=== PATIENT | male | born 1935 | race Caucasian/White ===

== ENCOUNTER 2017-10-03 05:30 | Day surgery (SDC) | payer MEDICARE, BC ==
[2017-10-03] MEDS ORDERED: LACTATED RINGERS 1,000 ML IV ONE (06:00)
[2017-10-03] MEDS ORDERED: SCOPOLAMINE 1.5MG PATCH TD SCH (06:00)
[2017-10-03] MEDS ORDERED: TRANEXAMIC ACID 100 MG/ML SOL ONE (06:50)
[2017-10-03] MEDS ORDERED: SODIUM CHLORIDE 20 ML 20 ML ONE (06:50)
[2017-10-03] MEDS ORDERED: BUPIVACAINE LIPOSOME 20 ML SUS ONE (06:51)
[2017-10-03] MEDS ORDERED: TETRACAINE HCL 1% SOL ONE (07:19)
[2017-10-03] MEDS ORDERED: MORPHINE SULFATE 0.5 MG/ML SOL ONE (07:22)
[2017-10-03] MEDS ORDERED: PROPOFOL 500 MG/50 ML EMU IV ONE (07:22)
[2017-10-03] MEDS ORDERED: ONDANSETRON HCL 4 MG/2 ML SOL ONE (07:22)
[2017-10-03] MEDS ORDERED: METOCLOPRAMIDE HYDROCHLORIDE 5 MG/ML SOL ONE (07:22)
[2017-10-03] MEDS ORDERED: MIDAZOLAM 2 MG/2 ML SOL ONE (07:22)
[2017-10-03] MEDS ORDERED: DEXAMETHASONE 20 MG/5 ML (4 MG/ML SOL) ONE (07:22)
[2017-10-03] MEDS ORDERED: LACTATED RINGERS 1,000 ML IV SCH (07:30)
[2017-10-03] MEDS ORDERED: CLINDAMYCIN 150 MG/ML SOL ONE (07:31)
[2017-10-03] MEDS ORDERED: BUPIVACAINE/EPI 0.25% 50 ML SOL ONE (07:55)
[2017-10-03] MEDS ORDERED: PHENYLEPHRINE HYDROCHLORIDE 10 MG/ML SOL ONE (08:33)
[2017-10-03] MEDS ORDERED: GLYCOPYRROLATE 0.2 MG/ML SOL ONE (08:39)
[2017-10-03] MEDS ORDERED: EPHEDRINE SULFATE 50 MG/ML SOL ONE ×3 (08:43→09:01)
[2017-10-03 18:44] VITALS: RESP 16
[2017-10-03 18:45] VITALS: BP 154/78; PULSE 78; TEMP 97.2; O2SAT 94
[2017-10-03] MEDS ORDERED: SIMVASTATIN 20 MG TAB PO SCH (21:00)
[2017-10-03] MEDS ORDERED: LABETALOL HYDROCHLORIDE 100 MG TAB PO SCH (21:00)
[2017-10-04] MEDS ORDERED: LISINOPRIL 5 MG TAB PO SCH (09:00)
[2017-10-04] MEDS ORDERED: HYDROCHLOROTHIAZIDE 25 MG TAB PO SCH (09:00)
== END 2017-10-03 16:00 | disposition home or self-care (01) | DRG 554 ==
LOC: SURG 05:30 → UNDOADMIN 05:30 → ACUTE CARE 05:30 → EDSTATUS 08:00 → UNDODISIN 16:00 → SURG 16:00
PROVIDERS: ATTEND Orthopaedic Surgery
DX: M17.0 Bilateral primary osteoarthritis of knee (principal)
CPT/HCPCS: 99070; J1100; J2250; J2274; J2405; J2765; J3490; J7643; A6402; A9270-GY; J2370; J2704

== ENCOUNTER 2017-12-12 05:16 | Inpatient (IN) | payer MEDICARE, BC ==
[2017-12-12] MEDS ORDERED: SCOPOLAMINE 1.5MG PATCH TD SCH (06:00)
[2017-12-12] MEDS ORDERED: PATIENT EDUCATION 1 MISC PRN ×2 (06:05→07:27)
[2017-12-12] MEDS ORDERED: LACTATED RINGERS 1,000 ML IV ONE (06:30)
[2017-12-12] MEDS ORDERED: SODIUM CHLORIDE 0.9% 1000ML 1,000 ML IV ONE (06:30)
[2017-12-12] MEDS ORDERED: SODIUM CHLORIDE 20 ML 20 ML ONE (07:07)
[2017-12-12] MEDS ORDERED: MIDAZOLAM 2 MG/2 ML SOL ONE (07:24)
[2017-12-12] MEDS ORDERED: METOCLOPRAMIDE HYDROCHLORIDE 5 MG/ML SOL ONE (07:24)
[2017-12-12] MEDS ORDERED: DEXAMETHASONE 20 MG/5 ML (4 MG/ML SOL) ONE (07:24)
[2017-12-12] MEDS ORDERED: MORPHINE SULFATE 0.5 MG/ML SOL ONE (07:24)
[2017-12-12] MEDS ORDERED: ONDANSETRON HCL 4 MG/2 ML SOL ONE (07:24)
[2017-12-12] MEDS ORDERED: PROPOFOL 500 MG/50 ML EMU IV ONE ×3 (07:24→11:01)
[2017-12-12] MEDS ORDERED: LACTATED RINGERS 1,000 ML IV SCH (07:30)
[2017-12-12] MEDS ORDERED: SODIUM CHLORIDE 0.9% 1000ML 1,000 ML IV SCH (07:30)
[2017-12-12] MEDS ORDERED: CLINDAMYCIN 150 MG/ML SOL ONE ×3 (07:33→18:52)
[2017-12-12] MEDS ORDERED: TETRACAINE HCL 1% SOL ONE (07:37)
[2017-12-12] MEDS ORDERED: PHENYLEPHRINE HYDROCHLORIDE 10 MG/ML SOL ONE (08:05)
[2017-12-12] MEDS ORDERED: EPHEDRINE SULFATE 50 MG/ML SOL ONE (08:22)
[2017-12-12] MEDS ORDERED: GLYCOPYRROLATE 0.2 MG/ML SOL ONE (08:32)
[2017-12-12] MEDS ORDERED: TRANEXAMIC ACID 100 MG/ML SOL ONE (08:37)
[2017-12-12] MEDS ORDERED: LIDOCAINE HCL 2% GEL TOP ONE (08:55)
[2017-12-12] MEDS: BUPIVACAINE LIPOSOME 20 ML SUS ONE ×4 (09:58→11:56)
[2017-12-12] MEDS ORDERED: KETAMINE HYDROCHLORIDE 50 MG/ML SOL ONE (10:16)
[2017-12-12] MEDS ORDERED: ALUMINUM/MAGNESIUM 30 ML SUS PO PRN (12:03)
[2017-12-12] MEDS ORDERED: BISACODYL 10 MG SUP PR PRN (12:03)
[2017-12-12] MEDS ORDERED: ONDANSETRON HCL 4 MG/2 ML SOL IV PRN (12:03)
[2017-12-12] MEDS ORDERED: MORPHINE SULFATE 10 MG/ML SOL IV PRN (12:03)
[2017-12-12] MEDS ORDERED: DIAZEPAM 5 MG TAB PO PRN (12:03)
[2017-12-12] MEDS ORDERED: ONDANSETRON 4 MG ODT BU PRN (12:03)
[2017-12-12] MEDS ORDERED: MAGNESIUM HYDROXIDE 30 ML SUS PO PRN (12:03)
[2017-12-12] MEDS ORDERED: FLEET ENEMA PR PRN (12:03)
[2017-12-12] MEDS ORDERED: DIPHENHYDRAMINE 25 MG CAP PO PRN (12:03)
[2017-12-12] MEDS ORDERED: SODIUM CHLORIDE 0.9% 500 ML 500 ML IV PRN (12:03)
[2017-12-12] MEDS ORDERED: PROPOFOL 10 MG/ML EMU IV ONE (12:11)
[2017-12-12] MEDS ORDERED: BUPIVACAINE/EPI 0.5% 10 ML SOL INFIL ONE (12:39)
[2017-12-12] MEDS ORDERED: BUPIVACAINE/EPI 0.25% 50 ML SOL ONE (12:40)
[2017-12-12] MEDS: SODIUM CHLORIDE 0.9% FLUSH 10 ML SOL IV SCH ×2 (14:35→20:14)
[2017-12-12] MEDS: SODIUM CHLORIDE 0.9% 1000ML 1,000 ML IV SCH (14:35)
[2017-12-12] MEDS ORDERED: SODIUM CHLORIDE 0.9% 100 ML 100 ML IV ONE (18:54)
[2017-12-12] MEDS: CLINDAMYCIN 150 MG/ML 900 MG in SODIUM CHLORIDE 0.9% 100 ML 100 ML IV SCH (18:56)
[2017-12-12] MEDS: APAP/HYDROCODONE 325/5 TAB PO PRN (18:56)
[2017-12-12] MEDS: SENNOSIDES A AND B 8.6 MG TAB PO SCH (20:12)
[2017-12-12] MEDS: LABETALOL HYDROCHLORIDE 100 MG TAB PO SCH (20:12)
[2017-12-12] MEDS: SIMVASTATIN 20 MG TAB PO SCH (20:13)
[2017-12-13] MEDS ORDERED: SODIUM CHLORIDE 0.9% 100 ML 100 ML IV ONE (00:03)
[2017-12-13] MEDS ORDERED: CLINDAMYCIN 150 MG/ML SOL ONE (00:03)
[2017-12-13] MEDS: CLINDAMYCIN 150 MG/ML 900 MG in SODIUM CHLORIDE 0.9% 100 ML 100 ML IV SCH (02:20)
[2017-12-13] MEDS: APAP/HYDROCODONE 325/5 TAB PO PRN ×6 (02:23→20:06)
[2017-12-13] MEDS: SODIUM CHLORIDE 0.9% FLUSH 10 ML SOL IV SCH ×3 (03:19→20:07)
[2017-12-13] MEDS: SODIUM CHLORIDE 0.9% 1000ML 1,000 ML IV SCH (03:41)
[2017-12-13 07:32] LABS: HEMOGLOBIN 9.3 gm/dl (13.5-17.7); MEAN CORPUSCULAR HEMOGLOBIN 29.9 pg (27.0-32.0); MEAN CORPUSCULAR HGB CONC 32.8 gm/dl (32.0-36.0)
[2017-12-13] MEDS: RIVAROXABAN 10 MG TAB PO SCH (08:23)
[2017-12-13] MEDS: HYDROCHLOROTHIAZIDE 25 MG TAB PO SCH (08:24)
[2017-12-13] MEDS: LABETALOL HYDROCHLORIDE 100 MG TAB PO SCH ×2 (08:24→20:09)
[2017-12-13] MEDS: MULTIVITAMIN2 1 EA TAB PO SCH (08:25)
[2017-12-13] MEDS: LISINOPRIL 5 MG TAB PO SCH (08:25)
[2017-12-13 08:58] LABS: APPEARANCE,URINE Clear; BILIRUBIN,URINE NEGATIVE (NEGATIVE); COLOR,URINE Yellow; GLUCOSE, URINE (UA) NEGATIVE (NEGATIVE); KETONES,URINE NEGATIVE (NEGATIVE); LEUKOCYTE ESTERASE ,URINE NEGATIVE (NEGATIVE); NITRATE,URINE NEGATIVE (NEGATIVE); OCCULT BLOOD,URINE 2+ (NEG-TRACE); UROBILINOGEN,URINE 0.2 (0.2-1.0 EU)
[2017-12-13 09:20] LABS: BACTERIA 1+ (< 1+); CRYSTALS NEGATIVE (0-3 AVE/HPF); EPITHELIAL CELLS 0-1 (SQUAMOUS); WBC,URINE 0-2 (0-5AV/HPF)
[2017-12-13] MEDS: SENNOSIDES A AND B 8.6 MG TAB PO SCH (20:08)
[2017-12-13] MEDS: SIMVASTATIN 20 MG TAB PO SCH (20:09)
[2017-12-14] MEDS: SODIUM CHLORIDE 0.9% FLUSH 10 ML SOL IV SCH ×3 (04:55→20:01)
[2017-12-14] MEDS: APAP/HYDROCODONE 325/5 TAB PO PRN ×3 (04:55→17:09)
[2017-12-14 07:18] LABS: HEMOGLOBIN 7.7 gm/dl (13.5-17.7); MEAN CORPUSCULAR HEMOGLOBIN 30.3 pg (27.0-32.0); MEAN CORPUSCULAR HGB CONC 33.1 gm/dl (32.0-36.0)
[2017-12-14 07:34] LABS: CARBON DIOXIDE 24.1 mEq/L (21-32); CREATININE 1.59 mg/dl (0.80-1.30); POTASSIUM 4.3 mMol/L (3.5-5.1)
[2017-12-14] MEDS: RIVAROXABAN 10 MG TAB PO SCH (08:25)
[2017-12-14] MEDS: LABETALOL HYDROCHLORIDE 100 MG TAB PO SCH ×2 (08:26→20:05)
[2017-12-14] MEDS: MULTIVITAMIN2 1 EA TAB PO SCH (08:26)
[2017-12-14] MEDS: HYDROCHLOROTHIAZIDE 25 MG TAB PO SCH (08:27)
[2017-12-14] MEDS: LISINOPRIL 5 MG TAB PO SCH (08:28)
[2017-12-14] MEDS ORDERED: FUROSEMIDE 40 MG SOL ONE (10:38)
[2017-12-14] MEDS ORDERED: FUROSEMIDE 20mg SOL IV SCH (11:00)
[2017-12-14] MEDS: SENNOSIDES A AND B 8.6 MG TAB PO SCH (20:02)
[2017-12-14] MEDS: SIMVASTATIN 20 MG TAB PO SCH (20:02)
[2017-12-15] MEDS: APAP/HYDROCODONE 325/5 TAB PO PRN ×5 (03:07→22:03)
[2017-12-15] MEDS: SODIUM CHLORIDE 0.9% FLUSH 10 ML SOL IV SCH ×3 (03:52→20:05)
[2017-12-15 07:18] LABS: MEAN CORPUSCULAR HEMOGLOBIN 30.3 pg (27.0-32.0)
[2017-12-15 07:23] LABS: CALCIUM 7.7 mg/dl (8.5-10.1); CARBON DIOXIDE 23.2 mEq/L (21-32); CREATININE 1.67 mg/dl (0.80-1.30); POTASSIUM 3.8 mMol/L (3.5-5.1)
[2017-12-15] MEDS: LISINOPRIL 5 MG TAB PO SCH (09:27)
[2017-12-15] MEDS: HYDROCHLOROTHIAZIDE 25 MG TAB PO SCH (09:27)
[2017-12-15] MEDS: MULTIVITAMIN2 1 EA TAB PO SCH (09:27)
[2017-12-15] MEDS: RIVAROXABAN 10 MG TAB PO SCH (09:28)
[2017-12-15] MEDS: LABETALOL HYDROCHLORIDE 100 MG TAB PO SCH ×2 (09:28→20:05)
[2017-12-15 11:15] LABS: ABO O; ANTIBODY SCREEN Negative; RH TYPE Positive; UNIT TYPE O POSITIVE
[2017-12-15] MEDS ORDERED: FUROSEMIDE 20mg SOL IV SCH (11:15)
[2017-12-15 11:16] LABS: UNIT TYPE O POSITIVE
[2017-12-15] MEDS: SODIUM CHLORIDE 0.9% 500 ML 500 ML IV SCH (14:10)
[2017-12-15] MEDS: SODIUM CHLORIDE 0.9% FLUSH 10 ML SOL IV PRN ×2 (14:11→16:17)
[2017-12-15] MEDS: PANTOPRAZOLE SODIUM 40 MG ECT PO SCH (16:39)
[2017-12-15] MEDS: SENNOSIDES A AND B 8.6 MG TAB PO SCH (20:05)
[2017-12-15] MEDS: SIMVASTATIN 20 MG TAB PO SCH (20:06)
[2017-12-16] MEDS: APAP/HYDROCODONE 325/5 TAB PO PRN ×3 (03:53→19:54)
[2017-12-16] MEDS: SODIUM CHLORIDE 0.9% FLUSH 10 ML SOL IV SCH ×3 (03:53→19:50)
[2017-12-16 07:26] LABS: ALBUMIN 2.2 gm/dl (3.4-5.0); BILIRUBIN,TOTAL 0.8 mg/dl (0.2-1.0); CALCIUM 7.9 mg/dl (8.5-10.1); CARBON DIOXIDE 23.2 mEq/L (21-32); CREATININE 1.65 mg/dl (0.80-1.30); POTASSIUM 3.4 mMol/L (3.5-5.1); TOTAL PROTEIN 5.5 gm/dl (6.4-8.2)
[2017-12-16] MEDS ORDERED: POTASSIUM CHLORIDE 10 MEQ TER PO SCH (08:15)
[2017-12-16] MEDS: LABETALOL HYDROCHLORIDE 100 MG TAB PO SCH ×2 (08:28→20:00)
[2017-12-16] MEDS: MULTIVITAMIN2 1 EA TAB PO SCH (08:28)
[2017-12-16] MEDS: LISINOPRIL 5 MG TAB PO SCH (08:28)
[2017-12-16] MEDS: PANTOPRAZOLE SODIUM 40 MG ECT PO SCH (08:30)
[2017-12-16] MEDS: SODIUM CHLORIDE 0.9% 500 ML 500 ML IV SCH (10:24)
[2017-12-16] MEDS ORDERED: APAP/HYDROCODONE 325/5 TAB ONE (19:40)
[2017-12-16] MEDS: SIMVASTATIN 20 MG TAB PO SCH (20:00)
[2017-12-16] MEDS: SENNOSIDES A AND B 8.6 MG TAB PO SCH (20:00)
[2017-12-17] MEDS ORDERED: APAP/HYDROCODONE 325/5 TAB ONE (02:58)
[2017-12-17] MEDS: APAP/HYDROCODONE 325/5 TAB PO PRN ×4 (03:03→22:20)
[2017-12-17] MEDS: SODIUM CHLORIDE 0.9% FLUSH 10 ML SOL IV SCH ×4 (04:01→20:20)
[2017-12-17 07:11] LABS: CALCIUM 7.8 mg/dl (8.5-10.1); CARBON DIOXIDE 26.9 mEq/L (21-32); CREATININE 1.36 mg/dl (0.80-1.30); POTASSIUM 3.7 mMol/L (3.5-5.1)
[2017-12-17 07:21] LABS: BASOPHILS % (AUTO) 1 % (0-3); EOSINOPHILS % (AUTO) 4 % (0-9); HEMATOCRIT 26 % (39-53); HEMOGLOBIN 8.3 gm/dl (13.5-17.7); LYMPHOCYTES % (AUTO) 9.3 % (10-50); MEAN CORPUSCULAR HEMOGLOBIN 29.2 pg (27.0-32.0); MEAN CORPUSCULAR HGB CONC 32.1 gm/dl (32.0-36.0); MEAN CORPUSCULAR VOLUME 91 fL (80-100); MONOCYTES % (AUTO) 9.2 % (0-12); NEUTROPHILS % (AUTO) 76.8 % (37-80)
[2017-12-17] MEDS ORDERED: SODIUM CHLORIDE 0.9% FLUSH 10 ML SOL IV PRN (08:14)
[2017-12-17] MEDS: PANTOPRAZOLE SODIUM 40 MG ECT PO SCH (09:03)
[2017-12-17] MEDS: LABETALOL HYDROCHLORIDE 100 MG TAB PO SCH ×2 (09:04→20:20)
[2017-12-17] MEDS: LISINOPRIL 5 MG TAB PO SCH (09:04)
[2017-12-17] MEDS: MULTIVITAMIN2 1 EA TAB PO SCH (09:05)
[2017-12-17 11:40] LABS: ABO O; ANTIBODY SCREEN Negative; RH TYPE Positive; UNIT TYPE O POSITIVE
[2017-12-17 11:41] LABS: UNIT TYPE O POSITIVE
[2017-12-17] MEDS: FUROSEMIDE 20mg SOL IV SCH ×2 (14:33→18:06)
[2017-12-17] MEDS: SENNOSIDES A AND B 8.6 MG TAB PO SCH (20:20)
[2017-12-17] MEDS: SIMVASTATIN 20 MG TAB PO SCH (20:20)
[2017-12-18] MEDS: SODIUM CHLORIDE 0.9% FLUSH 10 ML SOL IV SCH (04:48)
[2017-12-18 07:16] LABS: BASOPHILS % (AUTO) 2 % (0-3); EOSINOPHILS % (AUTO) 6 % (0-9); HEMATOCRIT 32 % (39-53); HEMOGLOBIN 10.5 gm/dl (13.5-17.7); LYMPHOCYTES % (AUTO) 12.7 % (10-50); MEAN CORPUSCULAR HEMOGLOBIN 29.4 pg (27.0-32.0); MEAN CORPUSCULAR HGB CONC 32.9 gm/dl (32.0-36.0); MEAN CORPUSCULAR VOLUME 90 fL (80-100); MONOCYTES % (AUTO) 10.6 % (0-12); NEUTROPHILS % (AUTO) 68.8 % (37-80)
[2017-12-18 07:38] VITALS: BP 142/73; PULSE 76; RESP 18; TEMP 98.2; O2SAT 94
[2017-12-18] MEDS: PANTOPRAZOLE SODIUM 40 MG ECT PO SCH (08:38)
[2017-12-18] MEDS: MULTIVITAMIN2 1 EA TAB PO SCH (08:38)
[2017-12-18] MEDS: LABETALOL HYDROCHLORIDE 100 MG TAB PO SCH (08:38)
[2017-12-18] MEDS: LISINOPRIL 5 MG TAB PO SCH (08:39)
[2017-12-18] MEDS ORDERED: HYDROCHLOROTHIAZIDE 25 MG TAB ONE (08:40)
[2017-12-18] MEDS: HYDROCHLOROTHIAZIDE 25 MG TAB PO SCH (08:41)
== END 2017-12-18 10:55 | disposition home or self-care (01) | DRG 462 ==
LOC: ACUTE CARE 05:16 → UNDOADMIN 05:16
PROVIDERS: ADMIT Orthopaedic Surgery; ATTEND Orthopaedic Surgery
PROC: 0SRC0J9 Replacement of Right Knee Joint with Synthetic Substitute, Cemented, Open Approach (ICD-10-PCS; 2017-12-12)
PROC: 0T9B70Z Drainage of Bladder with Drainage Device, Via Natural or Artificial Opening (ICD-10-PCS; 2017-12-12)
PROC: F01L5YZ Range of Motion and Joint Integrity Assessment of Musculoskeletal System - Lower Back / Lower Extremity using Other Equipment (ICD-10-PCS; 2017-12-12)
PROC: 0SRD0J9 Replacement of Left Knee Joint with Synthetic Substitute, Cemented, Open Approach (ICD-10-PCS; principal; 2017-12-12 08:00)
PROC: F01L5YZ Range of Motion and Joint Integrity Assessment of Musculoskeletal System - Lower Back / Lower Extremity using Other Equipment (ICD-10-PCS; 2017-12-13)
PROC: 30233N1 Transfusion of Nonautologous Red Blood Cells into Peripheral Vein, Percutaneous Approach (ICD-10-PCS; 2017-12-14)
PROC: 30233N1 Transfusion of Nonautologous Red Blood Cells into Peripheral Vein, Percutaneous Approach (ICD-10-PCS; 2017-12-15)
PROC: 30233N1 Transfusion of Nonautologous Red Blood Cells into Peripheral Vein, Percutaneous Approach (ICD-10-PCS; 2017-12-17)
DX: M17.0 Bilateral primary osteoarthritis of knee (principal); E87.1 Hypo-osmolality and hyponatremia; I10 Essential (primary) hypertension; Z96.653 Presence of artificial knee joint, bilateral; D64.89 Other specified anemias; E78.6 Lipoprotein deficiency
CPT/HCPCS: 36415; 51798; 73560; 80048; 80053; 81001; 82272; 85018; 85025; 85027; 86850; 86900; 86901; 86920; 94150; 99070; J1100; J1940; J2250; J2274; J2405; J2765; J3490; J7643; P9016; A6232; A6402; A9270-GY; J2370; J2704; Q3014

== ENCOUNTER 2018-01-23 15:12 | Outpatient (CLI) | payer MEDICARE, BC ==
[2017-12-18 07:38] VITALS: O2SAT 94
== END 2018-01-23 15:13 | disposition home or self-care (01) | DRG 561 ==
LOC: CONVCARE 15:12
PROVIDERS: ATTEND Orthopaedic Surgery
DX: Z47.1 Aftercare following joint replacement surgery (principal); Z96.653 Presence of artificial knee joint, bilateral
CPT/HCPCS: 73562

== ENCOUNTER 2018-02-27 10:56 | Outpatient (CLI) | payer MEDICARE, BC ==
[2017-12-18 07:38] VITALS: O2SAT 94
== END 2018-02-27 10:57 | disposition home or self-care (01) | DRG 566 ==
LOC: CONVCARE 10:56
PROVIDERS: ATTEND Orthopaedic Surgery
DX: Z96.653 Presence of artificial knee joint, bilateral (principal)
CPT/HCPCS: 73562